=== PATIENT | female | born 1940 | race Caucasian/White ===

== ENCOUNTER 2019-03-05 09:10 | Day surgery (SDC) | payer MEDICARE ==
[~2019-03-05 09:10] MED LIST: Acetaminophen TAB* 325 MG PO PRN
[2019-03-05] MEDS ORDERED: Tetracaine 0.5% OPTH.SOL 4 ML* 1 DROP BTL ONE (09:50)
[2019-03-05] MEDS ORDERED: Neomycin/Polymy/Dex OPHTH.OIN* 3.5 GM ONE (09:50)
[2019-03-05] MEDS ORDERED: Tropicamide 1% OPTH.SOL* BTL ONE (09:50)
[2019-03-05] MEDS ORDERED: Cyclopentolate 1% OPTH.SOL* 2 ML BTL ONE (09:50)
[2019-03-05] MEDS ORDERED: acetaZOLAMIDE TAB* 250 MG ONE (09:50)
[2019-03-05] MEDS ORDERED: Lidocaine 1% MPF ** 5 ML VIAL ONE (09:50)
[2019-03-05] MEDS ORDERED: Povidone Iodine 5% OPTH* 30 ML BTL ONE (09:50)
[2019-03-05] MEDS ORDERED: Ketorolac 0.5% OPHTH (NF) 0.5 % 5 ML BTL ONE (09:50)
[2019-03-05] MEDS ORDERED: Phenylephrine OPHTH SOL 2.5%* 2 ML ONE (09:50)
[2019-03-05] MEDS ORDERED: Midazolam* 1 MG/ML 2 ML VIAL (2 MG) ONE ×2 (10:14→10:27)
[2019-03-05] MEDS ORDERED: fentaNYL* 50 MCG/ML 2 ML VIAL (100 MCG VIAL) ONE (10:14)
[2019-03-05 11:06] VITALS: BP 117/54
--- NOTE | 2019-03-05 21:53 | OP ---
DATE OF OPERATION: 03/05/10 [facility] DATE OF : 38 SURGEON: Mario Alberto Patten MD ANESTHESIA: Monitored anesthesia care. PREOPERATIVE DIAGNOSIS: Cataract, right eye. POSTOPERATIVE DIAGNOSIS: Cataract, right eye. OPERATIVE PROCEDURE: Extracapsular cataract extraction of the right eye with intraocular lens implant. IMPLANT: SN60WF 12.0 Diopter lens to the right eye. COMPLICATIONS: None. DESCRIPTION OF PROCEDURE: The patient was given phenylephrine 2.5 % and cyclopentolate 1% eye drops to the operative eye in the preoperative area. The patient was taken to the operating room where a time-out was taken to identify the correct patient, site, and side of surgery. The patient's right eye was prepped and draped in the usual sterile fashion with 5% Betadine. A second time- out was taken to verify the correct patient, side, and site of surgery, as well as the correct lens implant. A lid speculum was placed to the right eye. A 1 mm paracentesis blade was used to make a clear corneal incision. Preservative-free 1% lidocaine was injected into the anterior chamber. DisCoVisc was then injected into the anterior chamber. A 2.75 mm keratome blade was used to make a triplanar incision. A cystotome initiated a capsulorrhexis, which was completed with Utrata forceps in a continuous and curvilinear manner. Hydrodissection of the lens was performed with BSS on a cannula. The lens could be spun in a capsular bag. The phacoemulsification handpiece was used with a divide-and- conquer technique to remove the nucleus. The I/A handpiece then removed the residual cortical lens material. DisCoVisc was injected to inflate the capsular bag. The planned SN60WF 12.0 Diopter lens was injected into the capsular bag. The residual DisCoVisc was removed from the eye with the I/A handpiece. The corneal incisions were hydrated and no leaks occurred at physiologic pressure around 20 mmHg per palpation. The lid speculum was removed and drapes were removed. Maxitrol ointment was placed to the surface of the operative eye. An adhesive patch and shield was then placed on the operative eye. The patient was taken to the postoperative area in stable condition. [id number]/[facility] #: [id number] [facility]
== END 2019-03-05 11:20 | disposition home or self-care (01) ==
LOC: OREAST 09:10
PROVIDERS: ATTEND Student in an Organized Health Care Education/Training Program
DX: H25.811 Combined forms of age-related cataract, right eye (principal); H35.3131 Nonexudative age-related macular degeneration, bilateral, early dry stage; E10.9 Type 1 diabetes mellitus without complications; Z79.4 Long term (current) use of insulin; I25.10 Atherosclerotic heart disease of native coronary artery without angina pectoris; Z95.1 Presence of aortocoronary bypass graft
CPT/HCPCS: A9270-GY; J2250; J3010; V2632

== ENCOUNTER 2019-08-11 13:57 | Emergency (ER) | payer MEDICARE ==
--- OUTSIDE RECORDS SUMMARY | 2019-08-11 14:10 | XMS REPORT | Continuity of Care Document ---
:1940 External Reference #:[id number] Author Name Nic Winchseter MD Address [address] [place] [address] Care Team Providers Name Role Phone Colin Jo MD - Endocrinology, Diabetes Care Team Information Sock And Stocking Ironer [phone] & Metabolism Problems Description No Information Available Social History Type Date Description Comments Sex Unknown Tobacco Use Start: Unknown Never Smoked Cigarettes ETOH Use Occasionally consumes alcohol Enjoy Exercising Enjoys exercising walks Allergies, Adverse Reactions, Alerts Description No Known Drug Allergies Medications Active Medications SIG Qnty Indications Ordering Provider Date Insulin Pump Ifrah Henderson, 10/07/2017 [employer] Vitamin D3 1 by mouth every Cait Emmanuel, 10/15/2016 5000Unit day [employer]-C Capsules Latanoprost Cait Emmanuel, 04/27/2016 0.005% [employer] Solution Rosuvastatin Calcium take one tablet Unknown 20mg by mouth at Tablets bedtime Contour Next One Blood Unknown Glucose Monitoring System Kit Immunizations CPT Code Status Date Vaccine Lot # [id number] Refused 07/30/2019 Influenza Virus Vaccine, Quadrivalent, 3 Yr > Quad , Preserv Free Vital Signs Date Vital Result Comment 07/30/2019 2:03pm Weight 130.00 lb Weight 58.968 kg BP Systolic 124 mmHg BP Diastolic 72 mmHg Heart Rate 74 /min Body Temperature 98.3 F Respiratory Rate 16 /min O2 % BldC Oximetry 98 % 02/28/2019 9:09am Weight 129.00 lb Weight 58.514 kg BP Systolic 122 mmHg BP Diastolic 60 mmHg Heart Rate 77 /min Body Temperature 97.8 F Respiratory Rate 16 /min O2 % BldC Oximetry 98 % Results Test Acquired Date Facility Test Result H/L Range Note Laboratory test 07/30/2019 Laboratory Vitamin B12 < pending> finding [phone] Vitamin D Total 25(Oh) <pending> Creatine Kinase(CK) <pending> Laboratory test 03/12/2019 Laboratory Point of 221 mg /dL High 70-100 1 finding [phone] Care Glucose Laboratory test 03/05/2019 Laboratory Point of 121 mg /dL High 70-100 2 finding [phone] Care Glucose Laboratory test 03/05/2019 Laboratory Point of 99 mg/ dL Normal 70-100 3 finding [phone] Care Glucose 1 Tape Recorder Mechanic: [id number] Tape Recorder Mechanic: [id number] Tape Recorder Mechanic: [id number] Procedures Date Code Description Status 06/13/2015 60331333 Mammogram Completed 06/13/2014 [id number] Bone Mineral Density Test Completed 06/13/2009 [id number] Colonoscopy Completed Medical Devices Description No Information Available Encounters Type Date Location Provider Dx Diagnosis Office Visit 02/28/2019 Main Office Nic Winchester, 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, morgagnian type, right eye Z01.818 Encounter for other preprocedural examination Assessments Date Code Description Provider 07/30/2019 L29.8 Other pruritus Nic Winchester MD 07/30/2019 E78.5 Hyperlipidemia, unspecified Nic Winchester MD 02/28/2019 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
--- NOTE | 2019-08-11 14:37 | ED ---
Upper Extremity Pain - HPI Summary HPI Summary: This patient is a 78 y/o female [facility] c/o left shoulder pain s/p fall today at about 1230. Patient reports she was trying to get her dog out of her car without it running away when she fell backwards and she struck her left posterior shoulder on a rock. Denies any head strike or LOC. Patient states she has decreased ROM of left shoulder. Patient's left shoulder is aggravated with movement and alleviated with rest. Denies fever, nausea, vomiting, chest pain. PMHx includes type 1 DM, double bypass 12/28/09. Home Medications Medication Instructions Recorded Confirmed Type Acetylcarnitin/Alpha Lipoic AC 500 mg PO BID 02/28/19 02/28/19 History [Acetyl f-Rvkczhfoo-Dpyemy Acid] Ascorbate Calcium [Vitamin C] 0.25 teasp PO QAM 02/28/19 02/28/19 History Aspirin EC TAB* [Ecotrin EC Low 81 mg PO BID WITH MEALS 02/28/19 02/28/19 History Dose 81 MG*] Astaxanthin 4 Mg Gelcap 4 mg PO QAM 02/28/19 02/28/19 History Calcium Crb,Cit/D3/Min34/Huber 1 tab PO SEE INSTRUCTIONS 02/28/19 02/28/19 History [Citracal + Bone Density Tablet] Cartilage/Collagen/Bor/Hyalur 1 each PO QAM 02/28/19 02/28/19 History [Joint Health Tablet] Cholecalciferol (Vitamin D3) 5,000 unit PO BEDTIME 02/28/19 02/28/19 History [Vitamin D3] Cod Liver Oil 1 Tsp Bedtime 1 teasp PO BEDTIME 02/28/19 02/28/19 History Nusrat 500mg Chewable 500 mg PO BID 02/28/19 02/28/19 History Humulog Insulin Pump 22 unit SUBCUT DAILY 02/28/19 02/28/19 History Lutein W/Bilberry Gelcap 1 cap PO SEE INSTRUCTIONS 02/28/19 02/28/19 History Magnesium Oxide [Magnesium] 250 mg PO BEDTIME 02/28/19 02/28/19 History Multivit-Minerals/Folic Acid 80 mcg PO BID 02/28/19 02/28/19 History [Centrum Multigummies] Policosanol 1 Gelcap 1 cap PO QAM 02/28/19 02/28/19 History Potassium Acid Phosphate TAB* [K 500 mg PO BEDTIME 02/28/19 02/28/19 History Phos Original TAB*] Quercetin 475 Mg Gelcap 475 mg PO BID 02/28/19 02/28/19 History Rosuvastatin Calcium 20 mg PO BEDTIME 02/28/19 02/28/19 History Selenium 200 mcg PO QAM 02/28/19 02/28/19 History Turmeric/Turmeric Root Extract 1 each PO BID 02/28/19 02/28/19 History [Turmeric 450-50 mg Capsule] Ubiquinol 100 mg PO BID 02/28/19 02/28/19 History Vit C/E/Zn/Coppr/Lutein/Zeaxan 1 each PO BID WITH MEALS 02/28/19 02/28/19 History [Preservision Areds 2 Softgel] Vitamin B Complex CAP* [B Complex 1 cap PO QAM 02/28/19 02/28/19 History CAP*] Vitamin E CAP* 268 unit PO QAM 02/28/19 02/28/19 History Vitamin K2 40 mcg PO QAM 02/28/19 02/28/19 History Zeaxanthin 4 mg PO QAM 02/28/19 02/28/19 History Zinc Amino Acid Chelate [Zinc] 50 mg PO BID 02/28/19 02/28/19 History oxyCODONE/Acetamin 5/325 MG* 1 tab PO Q4H PRN #12 tab MDD 4 08/11/19 Rx [Percocet 5/325 TAB*] - History of Current Complaint Chief Complaint: EDShoulderClavicShashanknj Stated Complaint: LT SHOULD INJ FROM FALL PER PT Time Seen by Provider: 08/11/19 14:27 Hx Obtained From: Patient Mechanism Of Injury: Blunt Trauma Onset/Duration: Started Hours Ago, Still Present Timing: Lasting Hours Severity Currently: Severe - 10/10 pain Pain Location: Shoulder - left Aggravating Factor(s): Movement Alleviating Factor(s): Rest Associated Signs & Symptoms: Negative: Fever, Chest Pain, Nausea, Vomiting - Allergies/Home Medications Allergies/Adverse Reactions: Allergies Allergy/AdvReac Type Severity Reaction Status Date / Time No Known Allergies Allergy Verified 08/11/19 14:02 Home Medications: Home Medications Acetylcarnitin/Alpha Lipoic AC [Acetyl z-Juvjynaym-Qfnhnj Acid] 500 mg PO BID [History Confirmed 02/28/19] Ascorbate Calcium [Vitamin C] 0.25 teasp PO QAM 02/28/19 [History Confirmed ] Aspirin EC TAB* [Ecotrin EC Low Dose 81 MG*] 81 mg PO BID WITH MEALS 02/28/19 [ History Confirmed 02/28/19] Astaxanthin 4 Mg Gelcap 4 mg PO QAM 02/28/19 [History Confirmed 02/28/19] Calcium Crb,Cit/D3/Min34/Huber [Citracal + Bone Density Tablet] 1 tab PO SEE INSTRUCTIONS 02/28/19 [History Confirmed 02/28/19] Cartilage/Collagen/Bor/Hyalur [Joint Health Tablet] 1 each PO QAM 02/28/19 [ History Confirmed 02/28/19] Cholecalciferol (Vitamin D3) [Vitamin D3] 5,000 unit PO BEDTIME 02/28/19 [ History Confirmed 02/28/19] Cod Liver Oil 1 Tsp Bedtime 1 teasp PO BEDTIME 02/28/19 [History Confirmed 02/28] Nusrat 500mg Chewable 500 mg PO BID 02/28/19 [History Confirmed 02/28/19] Humulog Insulin Pump 22 unit SUBCUT DAILY 02/28/19 [History Confirmed 02/28/19] Lutein W/Bilberry Gelcap 1 cap PO SEE INSTRUCTIONS 02/28/19 [History Confirmed 02/28/19] Magnesium Oxide [Magnesium] 250 mg PO BEDTIME 02/28/19 [History Confirmed ] Multivit-Minerals/Folic Acid [Centrum Multigummies] 80 mcg PO BID 02/28/19 [ History Confirmed 02/28/19] Policosanol 1 Gelcap 1 cap PO QAM 02/28/19 [History Confirmed 02/28/19] Potassium Acid Phosphate TAB* [K Phos Original TAB*] 500 mg PO BEDTIME 02/28/19 [History Confirmed 02/28/19] Quercetin 475 Mg Gelcap 475 mg PO BID 02/28/19 [History Confirmed 02/28/19] Rosuvastatin Calcium 20 mg PO BEDTIME 02/28/19 [History Confirmed 02/28/19] Selenium 200 mcg PO QAM 02/28/19 [History Confirmed 02/28/19] Turmeric/Turmeric Root Extract [Turmeric 450-50 mg Capsule] 1 each PO BID [History Confirmed 02/28/19] Ubiquinol 100 mg PO BID 02/28/19 [History Confirmed 02/28/19] Vit C/E/Zn/Coppr/Lutein/Zeaxan [Preservision Areds 2 Softgel] 1 each PO BID WITH MEALS 02/28/19 [History Confirmed 02/28/19] Vitamin B Complex CAP* [B Complex CAP*] 1 cap PO QAM 02/28/19 [History Confirmed 02/28/19] Vitamin E CAP* 268 unit PO QAM 02/28/19 [History Confirmed 02/28/19] Vitamin K2 40 mcg PO QAM 02/28/19 [History Confirmed 02/28/19] Zeaxanthin 4 mg PO QAM 02/28/19 [History Confirmed 02/28/19] Zinc Amino Acid Chelate [Zinc] 50 mg PO BID 02/28/19 [History Confirmed 02/28/19 ] oxyCODONE/Acetamin 5/325 MG* [Percocet 5/325 TAB*] 1 tab PO Q4H PRN #12 tab MDD 4 08/11/19 [Rx] PMH/Surg Hx/FS Hx/Imm Hx Endocrine/Hematology History: Reports: Hx Diabetes Cardiovascular History: Reports: Hx Coronary Artery Disease - coronary double bypass 12/2009, Other Cardiovascular Problems/Disorders - bypass done Denies: Hx Embolism, Hx Hypertension, Hx Pacemaker/ICD Respiratory History: Denies: Hx Asthma GI History: Reports: Other GI Disorders - 1992 ,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 Hx Chemotherapy: No Hx Radiation Therapy: No - Surgical History Surgery Procedure, Year, and Place: CORONARY BYPASS GRAPHING (NO STENTS) 2009. D&C X2;. APPENDECTOMY Hx Anesthesia Reactions: No Infectious Disease History: No Infectious Disease History: Denies: Traveled Outside the [place] in Last 30 Days - Family History Known Family History: Negative: Cardiac Disease, Hypertension, Diabetes, Blood Disorder - Social History Alcohol Use: Daily Alcohol Amount: 1 glass of wine at dinner Substance Use Type: Reports: None Hx Tobacco Use: No Smoking Status (MU): Unknown if Ever Smoked Review of Systems Negative: Fever Negative: Chest Pain Negative: Vomiting, Nausea Musculoskeletal: Other - POSITIVE: left shoulder pain Neurological/Mental Status: Other - NEGATIVE: LOC All Other Systems Reviewed And Are Negative: Yes Physical Exam - Summary Physical Exam Summary: VITAL SIGNS: Reviewed. GENERAL: Patient is a well-developed and nourished female who is lying comfortable in the stretcher. Patient is not in any acute respiratory distress. HEAD AND FACE: No signs of trauma. No ecchymosis, hematomas or skull depressions. No sinus tenderness. EYES: PERRLA, EOMI x 2, No injected conjunctiva, no nystagmus. EARS: Hearing grossly intact. Ear canals and tympanic membranes are within normal limits. MOUTH: Oropharynx within normal limits. NECK: Supple, trachea is midline, no adenopathy, no JVD, no carotid bruit, no c- spine tenderness, neck with full ROM. CHEST: Symmetric, no tenderness at palpation LUNGS: Clear to auscultation bilaterally. No wheezing or crackles. CVS: Regular rate and rhythm, S1 and S2 present, no murmurs or gallops appreciated. ABDOMEN: Soft, non-tender. No signs of distention. No rebound no guarding, and no masses palpated. Bowel sounds are normal. EXTREMITIES: decreased ROM of left shoulder. NEURO: Alert and oriented x 3. No acute neurological deficits. Speech is normal and follows commands. SKIN: Dry and warm Triage Information Reviewed: Yes Vital Signs On Initial Exam: Initial Vitals Temp Pulse Resp BP Pulse Ox 98.9 F 72 14 169/85 98 08/11/19 14:00 08/11/19 14:00 08/11/19 14:00 08/11/19 14:08/11/19 14:00 Vital Signs Reviewed: Yes Procedures - Sedation Patient Received Moderate/Deep Sedation with Procedure: No Diagnostics - Vital Signs Vital Signs Temp Pulse Resp BP Pulse Ox 08/11/19 14:00 98.9 F 72 14 169/85 98 - Laboratory Lab Statement: Any lab studies that have been ordered have been reviewed, and results considered in the medical decision making process. - Radiology Left shoulder XR Radiology Interpretation Completed By: Radiologist Summary of Radiographic Findings: IMPRESSION: Comminuted, impacted fracture at the surgical neck of the left humerus. Dr. Waldron has reviewed this report. Left clavicle XR Radiology Interpretation Completed By: Radiologist Summary of Radiographic Findings: IMPRESSION: Comminuted, impacted fracture at the surgical neck of the left humerus. Dr. Waldron has reviewed this report. Re-Evaluation - Re-Evaluation First Eval Re-Evaluation Time: 15:36 Comment: Reviewed results with patient. She will be discharged home with a sling and will follow up on Tuesday with orthopedics. Course/Dx - Course Assessment/Plan: This patient is a 78 y/o female presenting to [facility] c/o left shoulder pain s/p fall today at about 1230. Patient reports she was trying to get her dog out of her car without it running away when she fell backwards and she struck her left posterior shoulder on a rock. Denies any head strike or LOC. Patient states she has decreased ROM of left shoulder. Patient's left shoulder is aggravated with movement and alleviated with rest. Denies fever, nausea, vomiting, chest pain. PMHx includes type 1 DM, double bypass 12/28/09. Left shoulder x ray IMPRESSION: COMMINUTED, IMPACTED FRACTURE AT THE SURGICAL NECK OF THE LEFT HUMERUS. Patient was given Toradol and Percocet for the pain. I discussed the case with Dr. Spain from orthopedics and she recommends a sling and follow-up on Tuesday in her office. I discussed the plan with the patient and she agrees. Patient was given a prescription for Percocet. Patient is hemodynamically stable, alert and oriented 3. - Diagnoses Provider Diagnoses: Fracture of neck of humerus - Physician Notifications Discussed Care of Patient With: Desirae Spain - orthopedist Time Discussed With Above Provider: 15:38 Instructed by Provider To: Other - Discussed case with Dr. Spain, orthopedist, who recommends a sling and patient can follow up on Tuesday with ortho. Discharge ED - Sign-Out/Discharge Documenting (check all that apply): Patient Departure - Discharge home - Discharge Plan Condition: Stable Disposition: HOME Prescriptions: oxyCODONE/Acetamin 5/325 MG* [Percocet 5/325 TAB*] 1 tab PO Q4H PRN #12 tab MDD 4 PRN Reason: Pain - Moderate Patient Education Materials: How to Use a Sling (ED), Proximal Humerus Fracture (ED) Referrals: Desirae Spain MD [Medical Doctor] - Nic Winchester MD [Primary Care Provider] - Additional Instructions: USE THE SLING. FOLLOW UP WITH DR. SPAIN, ORTHOPEDIST, ON Tuesday08/13/19. RETURN TO THE EMERGENCY DEPARTMENT FOR ANY WORSENING OR NEW SYMPTOMS. - Billing Disposition and Condition Condition: STABLE Disposition: Home - Attestation Statements Document Initiated by Felix: Yes Documenting Scribe: Lynda Shah Provider For Whom Felix is Documenting (Include Credential): Chas Waldron MD Scribe Attestation: Lynda Beatty, scrbrittaed for Chas Waldron MD on 08/11/19 at 2148. Scribe Documentation Reviewed: Yes Provider Attestation: The documentation as recorded by the Lynda owens accurately reflects the service I personally performed and the decisions made by Chas maurer MD Status of Scribe Document: Viewed
[2019-08-11] MEDS ORDERED: Ketorolac *IM* INJ* 60 MG/2 ML VIAL IM ONE (15:30)
[2019-08-11] MEDS ORDERED: oxyCODONE/Acetamin 5/325 MG* TAB PO ONE (15:37)
[2019-08-11 16:46] VITALS: BP 132/68
== END 2019-08-11 16:45 | disposition home or self-care (01) ==
LOC: ED 13:57
DX: S42.292A Other displaced fracture of upper end of left humerus, initial encounter for closed fracture (principal); M25.512 Pain in left shoulder; W19.XXXA Unspecified fall, initial encounter; Y92.9 Unspecified place or not applicable; E10.9 Type 1 diabetes mellitus without complications; Z79.899 Other long term (current) drug therapy; I25.10 Atherosclerotic heart disease of native coronary artery without angina pectoris; Z95.1 Presence of aortocoronary bypass graft; Z85.828 Personal history of other malignant neoplasm of skin
CPT/HCPCS: 96372; 99283; A9270-GY; J1885